=== PATIENT | male | born 1970 | race Caucasian/White ===

== ENCOUNTER → 2018-02-23 | Outpatient (CLI) | payer BC ==
[~2018-02-23] MED LIST: BACL10TA PO; LORA10CA PO; NAPR220T76 PO
[2018-02-23 19:07] LABS: ALANINE AMINOTRANSFERASE 37 U/L (0-55); ALBUMIN 4.3 GM/DL (3.2-4.5); ALKALINE PHOSPHATASE 83 U/L (40-136); BILIRUBIN,TOTAL 0.6 MG/DL (0.1-1.0); BUN/CREATININE RATIO 13; CALCIUM 9.4 MG/DL (8.5-10.1); CARBON DIOXIDE 25 MMOL/L (21-32); CHLORIDE 105 MMOL/L (98-107); CREATININE SERUM 1.06 MG/DL (0.60-1.30); GFR ESTIMATED > 60; GLUCOSE 102 MG/DL (70-105); SODIUM 138 MMOL/L (135-145); TOTAL PROTEIN 7.6 GM/DL (6.4-8.2)
--- NOTE | 2018-02-23 19:12 | Diagnostic Imaging Report ---
PATIENT HISTORY: COUGH. TECHNIQUE: Two views of the chest. COMPARISON: 02/23/2018. FINDINGS: Lung volumes are normal. There is mild airspace opacity at the lingula. No pleural effusion or pneumothorax is seen. The cardiac silhouette is normal in size. No acute osseous abnormality is seen. IMPRESSION: Mild airspace opacity at the lingula may represent atelectasis or infiltrate. Dictated by: Dictated on workstation # [id number]
[2018-02-24 12:19] LABS: BASOPHILS % (AUTO) 1 % (0-10); EOSINOPHILS # (AUTO) 0.1 10^3/uL (0.0-0.3); EOSINOPHILS % (AUTO) 2 % (0-10); HEMATOCRIT 43 % (40-54); HEMOGLOBIN 14.9 G/DL (13.3-17.7); LYMPHOCYTES % (AUTO) 37 % (12-44); MEAN CORPUSCULAR HEMOGLOBIN 28 PG (25-34); MEAN CORPUSCULAR HGB CONC 35 G/DL (32-36); MEAN CORPUSCULAR VOLUME 81 FL (80-99); MEAN PLATELET VOLUME 10.3 FL (7.4-10.4); MONOCYTES # (AUTO) 0.6 X 10^3 (0.0-1.0); MONOCYTES % (AUTO) 11 % (0-12); NEUTROPHILS # (AUTO) 2.6 X 10^3 (1.8-7.8); NEUTROPHILS % (AUTO) 49 % (42-75); PLATELET COUNT 312 10^3/uL (130-400); RED BLOOD COUNT 5.25 10^6/uL (4.35-5.85); RED CELL DISTRIBUTION WIDTH 12.9 % (10.0-14.5); WHITE BLOOD COUNT 5.3 10^3/uL (4.3-11.0)
[2018-02-24 12:47] LABS: ERYTHROCYTE SEDIMENTATION RATE 4 MM/HR (0-15)
== END ==
LOC: RAD 18:20
PROVIDERS: ATTEND Internal Medicine
DX: R91.8 Other nonspecific abnormal finding of lung field (principal); R50.9 Fever, unspecified; R05 Cough; E78.1 Pure hyperglyceridemia
CPT/HCPCS: 36415; 71046; 80053; 85025; 85652

== ENCOUNTER 2019-09-14 05:29 | Outpatient (RCR) | payer BC ==
[~2019-09-14] VITALS: Ht 182 cm; Wt 95.4 kg
[~2019-09-14 05:29] MED LIST changes: +DIPH25CA79 PO; +LORA10TA76 PO
== END 2019-09-14 14:23 | disposition home or self-care (01) ==
LOC: PREOP 05:29
PROVIDERS: ATTEND Internal Medicine
DX: Z01.812 Encounter for preprocedural laboratory examination (principal); Z20.828 Contact with and (suspected) exposure to other viral communicable diseases; Z12.11 Encounter for screening for malignant neoplasm of colon
CPT/HCPCS: 87635

== ENCOUNTER 2019-09-17 09:00 | Day surgery (SDC) | payer BC ==
--- NOTE | 2019-09-06 08:24 | HISTORY AND PHYSICAL ---
DATE OF SERVICE: COLONOSCOPY HISTORY AND PHYSICAL DATE OF ADMISSION: ____. HISTORY OF PRESENT ILLNESS: The patient is a 48-year-old white male, who was referred by Dr. Morrow for his first screening colonoscopy. He is deemed to be of average risk as he is not aware of any family history for colon cancer or colon polyps. He denies abdominal pain or bowel habit change and has noted no melena. On some rare occasions, as I recall, he has had some small volume painless bright red blood per rectum. It has been several months since this last occurred. He reports that he feels well in his usual state of health. See below review of systems. PAST MEDICAL HISTORY: Significant for BPH and seasonal allergies with mild anxiety. He has a history of reflux for which he takes Prilosec and is on prophylactic aspirin 81 mg daily. He has had no dysphagia, epigastric or upper quadrant abdominal pain. PAST SURGICAL HISTORY: He had left inguinal hernia repair in 2004. FAMILY HISTORY: Father is living at the age of 93 with osteoarthritis and BPH. No known vascular disease or malignancy. Mother is living at the age of 79, but does have stage IV breast cancer, which has been responsive to hormonal therapy. 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 REVIEW OF SYSTEMS: CONSTITUTIONAL: The patient reports no change in weight, night sweats, chills or fever. CARDIOVASCULAR: The patient denies chest pain, dyspnea on exertion, orthopnea, PND or pedal edema. PULMONARY: The patient denies cough, wheezing or shortness of breath. GASTROINTESTINAL: As noted in the HPI. PHYSICAL EXAMINATION: GENERAL: Reveals a well-appearing white male in no acute distress. HEENT: Unremarkable. Mallampati 2 pharyngeal configuration. Pharynx, no evidence for erythema. CHEST: Clear to auscultation. CARDIOVASCULAR: Reveals a regular rate and rhythm without murmur, S3 or S4. ABDOMEN: Soft, supple without mass, organomegaly or tenderness. EXTREMITIES: Reveal no cyanosis, clubbing or edema. ASSESSMENT AND PLAN: The patient was set up for screening colonoscopy. Prep instructions with the Suprep kit were given and questions were answered. I thank you for the referral of this pleasant gentleman. I also reviewed his electronic medical record. Job ID: [id number] DocumentID: [id number] Dictated Date: 08/24/2019 08:44:24 Embedded Software Development Engineer Date: 08/24/2019 09:20:04 Dictated By: THOMAS TAY MD MTDD
[~2019-09-17] VITALS: Ht 182 cm; Wt 95.4 kg
[2019-09-17] VITALS (11 sets, daily range): BP systolic 118–144; BP diastolic 70–97
--- OUTSIDE RECORDS SUMMARY | 2019-09-17 08:56 | XMS REPORT | Continuity of Care Document ---
Author Organization Unknown Address Unknown Phone Unavailable Allergies Active Description Code Type Severity Reaction Onset Reported/Identified Relationship to Patient Clinical Status Yes No Known Drug Allergies [id number] Drug Allergy Unknown N/A 09/09/2019 Medications There is no data. Problems Date Dx Coded Attending Type Code Diagnosis Diagnosed By 01/16/1422 JASVIR LLANES, THOMAS Dhaliwal Ot Z01.812 ENCOUNTER FOR PREPROCEDURAL LABORATORY E 01/16/1422 THOMAS TAY MD Ot Z12. 11 ENCOUNTER FOR SCREENING FOR MALIGNANT NE 01/16/1422 THOMAS TAY MD Ot Z20.828 CONTACT W AND EXPOSURE TO OTH VIRAL COMM 07/14/2005 Ot 918.1 07/14/2005 Ot 918.9 07/14/2005 Ot E849.0 07/14/2005 Ot E917.9 06/03/2010 Ot 724.1 PAIN IN THORACIC SPINE 02/24/2018 BARTON DO, MAGGY Ot E78.1 PURE HYPERGLYCERIDEMIA 02/24/2018 BARTON DO, MAGGY Ot R05 COUGH 02/24/2018 BARTON DO, MAGGY Ot R50.9 FEVER, UNSPECIFIED 02/24/2018 BARTON DO, MAGGY Ot R91.8 OTHER NONSPECIFIC ABNORMAL FINDING OF ERA 04/20/2018 BARTON DO, MAGGY Ot E78.1 PURE HYPERGLYCERIDEMIA 04/20/2018 BARTON DO, MAGGY Ot R05 COUGH 04/20/2018 BARTON DO, MAGGY Ot R50.9 FEVER, UNSPECIFIED 04/20/2018 BARTON DO, MAGGY Ot R91.8 OTHER NONSPECIFIC ABNORMAL FINDING OF ERA 04/24/2018 BARTON DO, MAGGY Ot E78.1 PURE HYPERGLYCERIDEMIA 04/24/2018 BARTON DO, MAGGY Ot R05 COUGH 04/24/2018 BARTON DO, MAGGY Ot R50.9 FEVER, UNSPECIFIED 04/24/2018 BARTON DO, MAGGY Ot R91.8 OTHER NONSPECIFIC ABNORMAL FINDING OF ERA 04/24/2018 BARTON DO, MAGGY Ot E78.1 PURE HYPERGLYCERIDEMIA 04/24/2018 MAGGY BARTON DO Ot R05 COUGH 04/24/2018 MAGGY BARTON DO Ot R50.9 FEVER, UNSPECIFIED 04/24/2018 MAGGY BARTON DO Ot R91.8 OTHER NONSPECIFIC ABNORMAL FINDING OF ERA Procedures There is no data. Results Test Result Range Comprehensive metabolic panel - 02/23/18 18:43 Serum or plasma sodium measurement (moles/volume) 138 mmol/L 135-145 Serum or plasma potassium measurement (moles/volume) 4.0 mmol/L 3.6-5.0 Serum or plasma chloride measurement (moles/volume) 105 mmol/L 98-107 Carbon dioxide 25 mmol/L 21-32 Serum or plasma anion gap determination (moles/volume) 8 mmol/L 5-14 Serum or plasma urea nitrogen measurement (mass/volume ) 14 mg/dL 7-18 Serum or plasma creatinine measurement (mass/volume) 1.06 mg/dL 0.60-1.30 Serum or plasma urea nitrogen/creatinine mass ratio 13 NRG Serum or plasma creatinine measurement w ith calculation of estimated glomerular filtration rate > NRG Serum or plasma glucose measurement (mass/volume) 102 mg/dL 70-105 Serum or plasma calcium measurement (mass/volume) 9.4 mg/dL 8.5-10.1 Serum or plasma total bilirubin measurement (mass/volu me) 0.6 mg/dL 0.1-1.0 Serum or plasma alkaline phosphatase canelo surement (enzymatic activity/volume) 83 U/L 40-136 Serum or plasma aspartate aminotransfera se measurement (enzymatic activity/volume) 32 U/L 5-34 Serum or plasma alanine aminotransferase measurement (enzymatic activity/volume) 37 U/L 0-55 Serum or plasma protein measurement (mass/volume) 7.6 g/dL 6.4-8.2 Serum or plasma albumin measurement (mass/volume) 4.3 g/dL 3.2-4.5 CALCIUM CORRECTED 9.2 mg/dL 8.5-10.1 Complete blood count (CBC) with automate d white blood cell (WBC) differential - 02/23/18 18:43 Blood leukocytes automated count (number/volume) 5.3 10*3/uL 4.3-11.0 Blood erythrocytes automated count (number/volume) 5.25 10*6/uL 4.35-5.85 Venous blood hemoglobin measurement (mass/volume) 14.9 g/dL 13.3-17.7 Blood hematocrit (volume fraction) 43 % 40-54 Automated erythrocyte mean corpuscular volume 81 [ foz_us] 80-99 Automated erythrocyte mean corpuscular h emoglobin (mass per erythrocyte) 28 pg 25-34 Automated erythrocyte mean corpuscular h emoglobin concentration measurement (mass/volume) 35 g/dL 32-36 Automated erythrocyte distribution width ratio 12. 9 % 10.0- 14.5 Automated blood platelet count (count/volume) 312 10*3/uL 130-400 Automated blood platelet mean volume measurement 10.3 [foz_us] 7.4-10.4 Automated blood neutrophils/100 leukocytes 49 % 42-75 Automated blood lymphocytes/100 leukocytes 37 % 12-44 Blood monocytes/100 leukocytes 11 % 0-12 Automated blood eosinophils/100 leukocytes 2 % 0-10 Automated blood basophils/100 leukocytes 1 % 0-10 Blood neutrophils automated count (number/volume) 2.6 10*3 1.8-7.8 Blood lymphocytes automated count (number/volume) 2.0 10*3 1.0-4.0 Blood monocytes automated count (number/volume) 0. 6 10*3 0.0-1.0 Automated eosinophil count 0.1 10*3/uL 0 .0-0.3 Automated blood basophil count (count/volume) 0.0 10*3/uL 0.0-0.1 Erythrocyte sedimentation rate by blanca gren method - 02/23/18 18:43 Erythrocyte sedimentation rate by westergren method 4 mm 0- 15 Coronavirus SARS-CoV-2 SO 2018 - 0 08:08 Coronavirus Ab [Units/volume] in Serum NOT DETECTE D Not Detecte Encounters ACCT No. Visit Date/Time Discharge Status Pt. Type Provider Facility Loc./Unit Complaint [id number] 09/14/2019 05:29:00 020 14:23:00 DIS Outpatient THOMAS TAY MD [facility] PREOP SCREENING [id number] 02/23/2018 18:20:00 019 23:59:59 CLS Outpatient MAGGY BARTON DO [facility] RAD CHEST X RAY PA AND LATE RAL [id number] 09/09/2019 12:32:00 Document Registration [id number] 06/03/2010 11:47:00 Document Registration [id number] 07/14/2005 19:25:00 Document Registration
--- OUTSIDE RECORDS SUMMARY | 2019-09-17 08:56 | XMS REPORT | Clinical Summary ---
Author Author UserJose Organization [facility] Physician Allian e Address Unknown Phone Unavailable Allergies, Adverse Reactions, Alerts Allergy Name Reaction Description Start Date Severity Status Pr leydi ROCA Does nothing for him Critical Active Nata Morrow Conditions or Problems Problem Name Problem Code Onset Date Status Entry Date Provider Comment Standard Description Annotate EXUDATIVE PHARYNGITIS 462 Resolved Madhuri Morrow Acute pharyngitis SINUSITIS, ACUTE 461.9 Resolved Madhuri Rodriguez rner Acute sinusitis, unspecified History of HERNIA REPAIR, HX OF 45.89 Correction 2012 Madhuri Morrow COUGH 786.2 Resolved Madhuri Morrow Cough INGROWN TOENAIL 703.0 Resolved Madhuri orosco Ingrowing nail KELOID SCAR 701.4 Resolved Madhuri Morrow Keloid scar back x 2 ALLERGIC RHINITIS, CHRONIC 477.9 Active 0 Madhuri Morrow Allergic rhinitis, cause unspecified INSOMNIA, CHRONIC 780.52 Active Madhuri Rodriguez rner Insomnia, unspecified SINUS CONGESTION 478.1 Resolved Madhuri Rodriguez rner Other diseases of nasal cavity and sinuses URI 465.9 Resolved Madhuri Mrorow Acute upper respiratory infections of unspecified site PHARYNGITIS, ACUTE 462 Resolved Madhuri Morrow Acute pharyngitis OM, ACUTE SEROUS 381.01 Resolved Madhuri Rodriguez rner Acute serous otitis media ALLERGIC RHINITIS, CHRONIC 477.9 Resolved Madhuri Morrow Allergic rhinitis, cause unspecified ABSCESS, PERITONSILLAR, RIGHT 475 Resolved 07/23 Madhuri Morrow Peritonsillar abscess SINUSITIS, SPHENOIDAL, ACUTE 461.3 Resolved Madhuri Morrow Acute sphenoidal sinusitis SINUSITIS, SPHENOIDAL, ACUTE 461.3 Resolved Madhuri Morrow Acute sphenoidal sinusitis BURSITIS 727.3 Resolved Madhuri Morrow Other bursitis disorders SINUSITIS, SPHENOIDAL, ACUTE 461.3 Resolved Madhuri Morrow Acute sphenoidal sinusitis URINARY FREQUENCY 788.41 Resolved Madhuri foster Urinary frequency HEALTH SCREENING V70.0 Resolved Madhuri Rodriguez rner Routine general medical examination at a health care facility MUSCLE STRAIN 848.9 Resolved Madhuri Ortega r Unspecified site of sprain and strain VARICOSE VEINS, LOWER EXTREMITIES 454.9 Resolved 20 30/07/05 Madhuri Morrow Asymptomatic varicose veins EAR PAIN, BILATERAL 388.70 Resolved Madhuri Morrow Otalgia, unspecified HEALTH SCREENING V70.0 Resolved Madhuri Rodriguez rner Routine general medical examination at a health care facility SHOULDER PAIN 719.41 Active Madhuri Morrow Pain in joint involving shoulder region ERECTILE DYSFUNCTION, 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 08/22 Madhuri Morrow Impotence of organic origin Medication List Medication Instructions Start Date Stop Date Generic Name NDC Status Provider Patient Instruction ROBITUSSIN A-C 10-100 MG/5ML SYRUP 1 teaspoon PO Q 4-6 hr prn 20 31/08/05 ROBITUSSIN A-C 10-100 MG/5ML SYRUP Active Madhurijeri Morrow CIALIS 5 MG TABS 1 po daily as directed TADALAFIL 86484387517 Active Madhurijeri Morrow CEFDINIR 300 MG CAPS 1 PO BID CEFDINIR 59745721794 Active Madhuri Dianelys Morrow VIAGRA 100 MG TABS 1 PO as directed SILDENAFIL CITRATE 67591882661 No Longer Active Madhuri Dianelys Morrow LORTAB 5 5-500 MG TABS 1 to 2 PO Q6hrs prn ACETAMINOPHEN-HYDROCODONE 46685130659 No Longer Active Madhurijeri Morrow LUNESTA 2 MG TABS 1 PO QHS prn ESZOPICLONE 56110 729537 No Longer Active Madhurijeri Morrow BENADRYL 25 MG CAP 1 PO QHS DIPHENHYDRAMINE HCL 20131 747556 Active Madhurijeri Morrow AUGMENTIN 500-125 MG TAB 1 PO BID SERGE XICILLIN-POT CLAVULANATE 03842003223 No Longer Active Madhuri JULIO'S NASAL SPRAY (DEXAMETHASONE, GENTAMICIN, SA LINE) 2 puffs each nostril TID for [address] MA NASAL SP RAY (DEXAMETHASONE, GENTAMICIN, SALINE) No Longer Active Madhuri Morrow PREDNISONE 20 MG TAB 2 pills at once for 2 days then 1 pill daily for 2 days PREDNISONE 39290336985 No Longer Active Cayla Castillo PREDNISONE 20 MG TAB 2 pills at once for 2 days then 1 pill daily for 2 days PREDNISONE 79023247525 No Longer Active Madhuri Morrow CIALIS 20 MG TABS 1 PO as directed TADALAFIL 2349 1666449 No Longer Active Madhurijeri Morrow BACLOFEN 20 MG TABS 1 PO TID PRN BACLOFEN 74172867985 Active Madhurijeri Morrow LEVAQUIN 500 MG TAB 1 PO QD LEVOFLOXACIN 98924 885849 No Longer Active Madhuri MA NASAL SPRAY (DEXAMETHASONE, GENTAMICIN, SA LINE) 2 puffs each nostril TID for [address] MA NASAL SP RAY (DEXAMETHASONE, GENTAMICIN, SALINE) No Longer Active Madhuri Morrow AUGMENTIN 875-125 MG TAB 1 PO BID SERGE XICILLIN-POT CLAVULANATE 67285259489 No Longer Active Madhuri Morrow PREDNISONE 20 MG TAB 2 pills at once for 3 days then 1 pill daily for 2 days PREDNISONE 80533231601 No Longer Active Madhuri Morrow AUGMENTIN 875-125 MG TAB 1 PO BID SERGE XICILLIN-POT CLAVULANATE 71117073265 No Longer Active Madhuri Morrow ATROVENT 0.06 % SOLN 1 puff each nostril QD prn IPRATROPIUM BROMIDE 21293934920 No Longer Active Madhuri Morrow PREDNISONE 20 MG TAB 2 PO daily for 3 days then 1 PO daily f or 2 days PREDNISONE 24224730920 No Longer Active Madhuri MA NASAL SPRAY (DEXAMETHASONE, GENTAMICIN, SA LINE) 2 puffs each nostril TID for [address] MA NASAL SP RAY (DEXAMETHASONE, GENTAMICIN, SALINE) No Longer Active Madhuri Morrow AUGMENTIN 500-125 MG TAB 1 PO BID SERGE XICILLIN-POT CLAVULANATE 87108648796 No Longer Active Madhuri Morrow PERIDEX 0.12 % SOLN gargle BID as needed for sore throat CHLORHEXIDINE GLUCONATE 10885451443 No Longer Active Madhuri Dianelys Morrow CLARITIN 10 MG TABS 1 daily LORATADINE 38415918 801 No Longer Active Madhuri Dianelys Morrow CLARITIN-D 24 HOUR 10-240 MG TB24 1 PO daily LO RATADINE-PSEUDOEPHEDRINE 40336445882 Active Madhuri Dianelys Morrow MUCINEX 600 MG TB12 1 PO BID for 7 days GUAIFEN ESIN 10524058312 No Longer Active Madhuri Dianelys JULIO'S NASAL SPRAY (DEXAMETHASONE, GENTAMICIN, SA LINE) 2 puffs each nostril TID for [address] MARCUSS NASAL SP RAY (DEXAMETHASONE, GENTAMICIN, SALINE) No Longer Active Madhuri Morrow AUGMENTIN 875-125 MG TAB 1 PO BID SERGE XICILLIN-POT CLAVULANATE 47838566246 No Longer Active Madhuri Dianelys Morrow PERIDEX 0.12 % SOLN gargle BID CHLORHEXIDINE GL UCONATE 78931773232 No Longer Active Madhuri Dianelys Morrow ASPIRIN 81 MG TAB 1 daily ASPIRIN 09443390117 Active Mi ndi Dianelys Morrow CODICLEAR DH 5-100 MG/5ML SYRP 5 cc. q 4-6 hrs. prn cough 3 HYDROCODONE-GUAIFENESIN 35590710337 No Longer Active Madhuri Dianelys Morrow NYQUIL 60-7.5-30-1000 MG/30ML LIQD as night 07/30 [id number] 48907993920 No Longer Active Madhurijeri Driver er VICKS FORMULA 44D 20-10 MG/5ML ELIX as directed 07/30 PSEUDOEPHEDRINE-DM 37074539928 No Longer Active Madhuri Dianelys Morrow AMOXIL 500 MG CAPS 2 po tid AMOXICILLIN 4359931 6707 No Longer Active Madhuri Dianelys Morrow SALT AND SODA NASAL SPRAY Flush 2-3 times daily for 1 week 03/26 SALT AND SODA NASAL SPRAY No Longer Active Madhuri Minoo Morrow CODICLEAR DH 5-100 MG/5ML SYRP 5 cc po q 4-6 hrs. prn cough 2004 HYDROCODONE-GUAIFENESIN 65287895933 No Longer Active Madhuri Diomedes Morrow AMBIEN 10 MG TAB 1/2 PO QHS ZOLPIDEM TARTRATE 52644189490 No Longer Active Madhuri Dianelys Morrow ZITHROMAX Z-MADELAINE 250 MG TABS 2 the first day, then 1 x 4 days 200 05/29/28 AZITHROMYCIN 32779948603 No Longer Active Madhuri Dianelys Morrow CLARINEX 5 MG TABS 1 PO QD DESLORATADINE 27755 248311 No Longer Active Madhuri Dianelys Morrow PALGIC 4 MG TABS 1 PO QD CARBINOXAMINE TARAN TE 48151067248 No Longer Active Madhuri Dianelys Morrow CLARITIN-D 24 HOUR 10-240 MG TB24 1 PO QD LORATADINE-PSEUDOEPHEDRINE 97844711951 No Longer Active Madhuri Dianelys Morrow ASTELIN 137 MCG/SPRAY SOLN 2 puffs each nostril BID 05/28/19 AZELASTINE HCL 52218991019 No Longer Active Madhuri Dianelys Morrow KEFLEX 500 MG TABS 1 tab tid x 7 days CEPHALEXI N 06459559183 No Longer Active Madhuri Dianelys MCDONALDICLEAR DH 5-100 MG/5ML SYRP 5 cc Po Q4-6prn HYDROCODONE-GUAIFENESIN 85113656430 No Longer Active Madhuri Dianelys Morrow BIAXIN 500 MG TAB 1 QD CLARITHROMYCIN 90136 689708 No Longer Active Madhuri Dianelys Morrow ATROVENT 0.06 % SOLN IPRATROPIUM BROMI DE 71372938389 No Longer Active Madhuri Morrow CLARINEX 5 MG TABS 1 QD DESLORATADINE 38115 079700 No Longer Active Madhurijeri Guzmane Cristhian Vital Signs Date Name Value Unit Range Description blood pressure, diastolic - 8462-4 80 mm[Hg] BP robison blood pressure, systolic - 8480-6 139 mm[Hg] BP sys pulse rate E&M - 8867-4 88 /min H eart rate respiratory rate E&M - 9279-1 14 /min Resp rate temperature E&M 98.6 [degF] Body temp erature weight E&M - 3141-9 111 [lb_av] Weigh t Measured blood pressure, diastolic - 8462-4 34 mm[Hg] BP robison blood pressure, systolic - 8480-6 128 mm[Hg] BP sys pulse rate E&M - 8867-4 80 /min H eart rate respiratory rate E&M - 9279-1 14 /min Resp rate weight E&M - 3141-9 205 [lb_av] Weigh t Measured Diagnostic Results Date Name Value Unit Range Description Clinical Lists Update: CBC,CMP,FLP,TSH - Chemistry Estimated Glomerular Filtration Rate (calc) 73 mL/ min/1.73m2 glucose, plasma fasting 99 mg/dL albumin, serum 4.4 g/dL alkaline phosphatase, serum 61 U/L urea nitrogen, blood 18 mg/dL calcium, serum 9.4 mg/dL chloride, serum 104 mmol/L cholesterol, serum 198 mg/dL cholesterol/HDL ratio, serum, percent 5.4 anion gap, serum 12 sodium, serum 140 mmol/L triglyceride, serum, fasting 177 mg/dL bilirubin, serum, total 0.5 mg/dL alanine aminotransferase (SGPT), serum 52 U/L aspartate aminotransferase (SGOT), serum 33 U/L protein, total, serum 6.7 g/dL potassium, serum 4.5 mmol/L LDL cholesterol, serum 126 mg/dL thyroid stimulating hormone, serum 1.01 u[iU]/mL HDL cholesterol, serum 37.0 mg/dL creatinine, serum 1.2 mg/dL carbon dioxide, venous blood 29.0 mmol/L Clinical Lists Update: CBC,CMP,FLP,TSH - Hematology erythrocyte (RBC) count 5.24 10*6/mm3 leukocyte count, blood 5.4 10*3/mm3 mean corpuscular volume, RBC 86 fL red blood cell distribution width 13.4 % hemoglobin, blood 15.3 g/dL platelet count 267 10*3/mm3 hematocrit, blood 45 % Encounters Code Encounter Date Provider Facility CPT-11658 Ofc Vst, Est Level IV 17:15:17 CDT Madhuri Serena Morrow DO, FACP CPT-31629 Ofc Vst, Est Level III 15:12:15 CDT Madhuri Morrow DO, FACP CPT-37951 Ofc Vst, Est Level III 11:44:55 CDT Madhuri Morrow DO FACP CPT-31135 Ofc Vst, Est Level III 15:55:25 CDT Madhuri Morrow [facility] CPT-20683 Ofc Vst, Est Level III 15:02:42 CDT Madhuri Morrow DO, FACP CPT-23383 Ofc Vst, Est Level III 14:37:44 LAUNDRY HOUSEKEEPER Madhuri S tiny Morrow Madhuri S Morrow, DO, FACP CPT-25781 Ofc Vst, Est Level III 10:42:22 CDT Madhuri S tiny [place] Madhuri S Morrow, DO, FACP CPT-45017 Ofc Vst, Est Level III 13:56:18 LAUNDRY HOUSEKEEPER Madhuri S tiny Morrow Madhuri S Morrow, DO, FACP CPT-01142 Ofc Vst, Est Level III 14:13:26 CDT Madhuri S tiny Brownner Madhuri S Morrow, DO, FACP CPT-92481 Ofc Vst, Est Level III 13:09:03 CDT Madhuri S tiny Morrow Madhuri S Cristhian, DO, FACP CPT-24333 Ofc Vst, Est Level III 09:11:49 LAUNDRY HOUSEKEEPER Madhuri S tiny Morrow Madhuri S Cristhian, DO, FACP CPT-80920 Ofc Vst, Est Level II 13:56:22 CDT Madhuri Lyons ce Morrow [facility] [place] CPT-39911 Ofc Vst, Est Level III 09:45:40 CDT Amdhuri S tiny Morrow [facility] [place] CPT-12861 Ofc Vst, Est Level II 17:33:06 LAUNDRY HOUSEKEEPER Madhuri Serena Morrow [facility] [place] CPT-97163 Ofc Vst, Est Level II 17:36:49 LAUNDRY HOUSEKEEPER Madhuri Serena Morrow [facility] [place] CPT-42788 Ofc Vst, Est Level II 14:04:35 LAUNDRY HOUSEKEEPER Madhuri Serena Morrow [facility] [place] CPT-77215 Ofc Vst, Est Level III 13:11:52 CDT Madhuri S tiny Morrow [facility] [place] CPT-54223 Ofc Vst, Est Level II 12:44:50 CDT Madhuri Serena Morrow [facility] [place] CPT-34574 Ofc Vst, Est Level III 10:35:29 CDT Madhuri Morrow [facility] [place] CPT-88388 Ofc Vst, Est Level II 11:11:24 LAUNDRY HOUSEKEEPER Madhuri Morrow [facility] [place] CPT-97987 Ofc Vst, New Level II 17:43:21 LAUNDRY HOUSEKEEPER Madhuri Morrow [facility] [place] Procedures Code Procedure Name Date Entry Date Standard Desc ription CPT-40410 Preventive, Est, (40-64) 17:11:09 CDT 09/30 CPT-90100 Preventive, Est, (18-39) 12:00:53 CDT 08/29 CPT-72845 Injection, intralesional, up to 7 lesions 07/30 09:36:32 CDT CPT-94666 Injection, intralesional, up to 7 lesions 07/31 12:44:50 CDT
--- OUTSIDE RECORDS SUMMARY | 2019-09-17 08:56 | XMS REPORT | Clinical Summary ---
Author Author User, Jose Gilbert Organization [facility] Allian e Address Unknown Phone Unavailable [...] cavity and sinuses URI 465.9 Resolved Madhuri Morrow Acute upper respiratory infections of unspecified site [...] 08/22 Madhuri Morrow Impotence of organic origin CELLULITIS 682.9 Active Madhuri Morrow Cellulitis and abscess of unspecified sites Medication List Medication Instructions Start Date Stop Date Generic Name ND Status Provider Patient Instruction ROBITUSSIN A-C 10-100 MG/5ML SYRUP 1 teaspoon PO Q 4-6 hr prn 20 31/08/05 ROBITUSSIN A-C 10-100 MG/5ML SYRUP No Longer Act diomedes Madhuri Morrow CIALIS 5 MG TABS 1 po daily as directed TADALAFIL 13275364579 Active Madhurijeri Morrow CEFDINIR 300 MG CAPS 1 PO BID CEFDINIR 6671617 0900 No Longer Active Madhuri Morrow VIAGRA 100 MG TABS 1 PO as directed SILDENAFIL CITRATE 12650889364 No Longer Active Madhuri Morrow LORTAB 5 5-500 MG TABS 1 to 2 PO Q6hrs prn ACETAMINOPHEN-HYDROCODONE 94616429631 No Longer Active Madhuri Morrow LUNESTA 2 MG TABS 1 PO QHS prn ESZOPICLONE 92512 182565 No Longer Active Madhuri Morrow BENADRYL 25 MG CAP 1 PO QHS DIPHENHYDRAMINE HCL 81560 602522 Active Madhuri Morrow AUGMENTIN 500-125 MG TAB 1 PO BID SERGE XICILLIN-POT CLAVULANATE 14659469831 No Longer Active Madhuri JULIO'S NASAL SPRAY (DEXAMETHASONE, GENTAMICIN, SA LINE) 2 puffs each nostril TID for [address] MA NASAL SP RAY (DEXAMETHASONE, GENTAMICIN, SALINE) No Longer Active Madhuri Morrow PREDNISONE 20 MG TAB 2 pills at once for 2 days then 1 pill daily for 2 days PREDNISONE 82321675824 No Longer Active aCyla Castillo PREDNISONE 20 MG TAB 2 pills at once for 2 days then 1 pill daily for 2 days PREDNISONE 69456096593 No Longer Active Madhuri Minoo Morrow CIALIS 20 MG TABS 1 PO as directed TADALAFIL 2349 4150911 No Longer Active Madhuri Dianelys Morrow BACLOFEN 20 MG TABS 1 PO TID PRN BACLOFEN 21876680964 Active Madhuri Dianelys Morrow LEVAQUIN 500 MG TAB 1 PO QD LEVOFLOXACIN 29506 905776 No Longer Active Madhuri Dianelys MA NASAL SPRAY (DEXAMETHASONE, GENTAMICIN, SA LINE) 2 puffs each nostril TID for [address] MA NASAL SP RAY (DEXAMETHASONE, GENTAMICIN, SALINE) No Longer Active Madhurijeri Morrow AUGMENTIN 875-125 MG TAB 1 PO BID SERGE XICILLIN-POT CLAVULANATE 23214524025 No Longer Active Madhurijeri Morrow PREDNISONE 20 MG TAB 2 pills at once for 3 days then 1 pill daily for 2 days PREDNISONE 61577684702 No Longer Active Madhuri Minoo Morrow AUGMENTIN 875-125 MG TAB 1 PO BID SERGE XICILLIN-POT CLAVULANATE 88211690546 No Longer Active Madhuri Morrow ATROVENT 0.06 % SOLN 1 puff each nostril QD prn IPRATROPIUM BROMIDE 77566372954 No Longer Active Madhurijeri Morrow PREDNISONE 20 MG TAB 2 PO daily for 3 days then 1 PO daily f or 2 days PREDNISONE 86266634269 No Longer Active Madhuri Dianelys Driver er DR. MA NASAL SPRAY (DEXAMETHASONE, GENTAMICIN, SA LINE) 2 puffs each nostril TID for [address] MA NASAL SP RAY (DEXAMETHASONE, GENTAMICIN, SALINE) No Longer Active Madhuri Dianelys Morrow AUGMENTIN 500-125 MG TAB 1 PO BID SERGE XICILLIN-POT CLAVULANATE 43613675021 No Longer Active Madhurijeri Morrow PERIDEX 0.12 % SOLN gargle BID as needed for sore throat CHLORHEXIDINE GLUCONATE 94844296517 No Longer Active Madhuri Dianelys Morrow CLARITIN 10 MG TABS 1 daily LORATADINE 67092087 801 No Longer Active Madhuri Dianelys Morrow CLARITIN-D 24 HOUR 10-240 MG TB24 1 PO daily LO RATADINE-PSEUDOEPHEDRINE 86331238779 Active Madhuri Dianelys Morrow MUCINEX 600 MG TB12 1 PO BID for 7 days GUAIFEN ESIN 53380348834 No Longer Active Madhurijeri JULIO'S NASAL SPRAY (DEXAMETHASONE, GENTAMICIN, SA LINE) 2 puffs each nostril TID for [address] JULIO'Diomedes NASAL SP RAY (DEXAMETHASONE, GENTAMICIN, SALINE) No Longer Active Madhurijeri Morrow AUGMENTIN 875-125 MG TAB 1 PO BID SERGE XICILLIN-POT CLAVULANATE 10647440925 No Longer Active Madhuri Dianelys Morrow PERIDEX 0.12 % SOLN gargle BID CHLORHEXIDINE GL UCONATE 11723770670 No Longer Active Madhurijeri Morrow ASPIRIN 81 MG TAB 1 daily ASPIRIN 76970483316 Active Mi ndi Dianelys Morrow CODICLEAR DH 5-100 MG/5ML SYRP 5 cc. q 4-6 hrs. prn cough 3 HYDROCODONE-GUAIFENESIN 43751230421 No Longer Active Madhuri Dianelys Morrow NYQUIL 60-7.5-30-1000 MG/30ML LIQD as night 07/30 HQSLQIPMI-[id number]-APAP 91544280412 No Longer Active Madhurijeri Driver er VICKS FORMULA 44D 20-10 MG/5ML ELIX as directed 07/30 PSEUDOEPHEDRINE-DM 07902157409 No Longer Active Madhuri Dianelys Morrow AMOXIL 500 MG CAPS 2 po tid AMOXICILLIN 4178929 6707 No Longer Active Madhuri Dianelys Morrow SALT AND SODA NASAL SPRAY Flush 2-3 times daily for 1 week 03/26 SALT AND SODA NASAL SPRAY No Longer Active Madhuri Minoo Morrow CODICLEAR DH 5-100 MG/5ML SYRP 5 cc po q 4-6 hrs. prn cough 2004 HYDROCODONE-GUAIFENESIN 38778981251 No Longer Active Madhuri Diomedes Morrow AMBIEN 10 MG TAB 1/2 PO QHS ZOLPIDEM TARTRATE 00650237346 No Longer Active Madhuri Dianelys Morrow ZITHROMAX Z-MADELAINE 250 MG TABS 2 the first day, then 1 x 4 days 200 05/29/28 AZITHROMYCIN 08461323921 No Longer Active Madhuri Dianelys Morrow CLARINEX 5 MG TABS 1 PO QD DESLORATADINE 19552 277757 No Longer Active Madhuri Dianelys Morrow PALGIC 4 MG TABS 1 PO QD CARBINOXAMINE TARAN TE 10319134628 No Longer Active Madhurijeri Morrow CLARITIN-D 24 HOUR 10-240 MG TB24 1 PO QD LORATADINE-PSEUDOEPHEDRINE 77095874471 No Longer Active Madhuri Dianelys Morrow ASTELIN 137 MCG/SPRAY SOLN 2 puffs each nostril BID 05/28/19 AZELASTINE HCL 27731378225 No Longer Active Madhuri Dianelys Morrow KEFLEX 500 MG TABS 1 tab tid x 7 days CEPHALEXI N 26307747522 No Longer Active Madhurijeri MCDONALDICLEAR DH 5-100 MG/5ML SYRP 5 cc Po Q4-6prn HYDROCODONE-GUAIFENESIN 74192758431 No Longer Active Madhuri Dianelys Morrow BIAXIN 500 MG TAB 1 QD CLARITHROMYCIN 88932 872439 No Longer Active Madhuri Dianelys Morrow ATROVENT 0.06 % SOLN IPRATROPIUM BROMI DE 55349806409 No Longer Active Madhuri Dianelys Morrow CLARINEX 5 MG TABS 1 QD DESLORATADINE 99187 432216 No Longer Active Madhuri Dianelys Morrow Vital Signs Date Name Value Unit Range Description blood pressure, diastolic - 8462-4 80 mm[Hg] BP robison blood pressure, systolic - 8480-6 140 mm[Hg] BP sys pulse rate E&M - 8867-4 80 /min H eart rate respiratory rate E&M - 9279-1 14 /min Resp rate weight E&M - 3141-9 207 [lb_av] Weigh t Measured blood pressure, diastolic - 8462-4 80 mm[Hg] [...] - 3141-9 205 [lb_av] Weigh t Measured Encounters Code Encounter Date Provider Facility CPT-19315 Ofc Vst, Est Level III 14:05:57 CDT Madhuri Dhaliwal S Morrow, DO, FACP CPT-66955 Ofc Vst, Est Level IV 17:15:17 CDT Madhuri Serena Peacei S Morrow, DO, FACP CPT-01559 Ofc Vst, Est Level III 15:12:15 CDT Madhuri S tiny Peacei Diomedes Morrow, DO, FACP CPT-83912 Ofc Vst, Est Level III 11:44:55 CDT Madhuri S tiny Peacei Diomedes Morrow, DO, FACP CPT-97774 Ofc Vst, Est Level III 15:55:25 CDT Madhuri S tiny Morrow [facility] CPT-17148 Ofc Vst, Est Level III 15:02:42 CDT Madhuri S tiny Peacei Diomedes Cristhian, DO, FACP CPT-97619 Ofc Vst, Est Level III 14:37:44 OUTSOLE SKIVER Madhrui S tiny Peacei S Cristhian, DO, FACP CPT-96574 Ofc Vst, Est Level III 10:42:22 CDT Madhuri S tiny Peacei S Morrow, DO, FACP CPT-53655 Ofc Vst, Est Level III 13:56:18 OUTSOLE SKIVER Madhuri Diomedes Peacei Diomedes Cristhian, DO, FACP CPT-02126 Ofc Vst, Est Level III 14:13:26 CDT Madhuri S tiny Peacei S Cristhian, DO, FACP CPT-50357 Ofc Vst, Est Level III 13:09:03 CDT Madhuri S tiny [place] Madhuri S Morrow, DO, FACP CPT-72296 Ofc Vst, Est Level III 09:11:49 OUTSOLE SKIVER Madhuri S tiny Morrow Madhuri S Morrow, DO, FACP CPT-10316 Ofc Vst, Est Level II 13:56:22 CDT Madhuri Serena encinas Cristhian [facility] [place] CPT-92442 Ofc Vst, Est Level III 09:45:40 CDT Madhuri Diomedes tiny Morrow [facility] [place] CPT-22348 Ofc Vst, Est Level II 17:33:06 OUTSOLE SKIVER Madhuri Lyons ce Morrow [facility] [place] CPT-91310 Ofc Vst, Est Level II 17:36:49 OUTSOLE SKIVER Madhuri Serena triplettlouann Cristhian [facility] [place] CPT-73875 Ofc Vst, Est Level II 14:04:35 OUTSOLE SKIVER Madhuri Serena Morrow [facility] [place] CPT-17705 Ofc Vst, Est Level III 13:11:52 CDT Madhuri Diomedes mikekvngdreadlouann Cristhian [facility] [place] CPT-65503 Ofc Vst, Est Level II 12:44:50 CDT Madhuri Lyons ce Morrow [facility] [place] CPT-23862 Ofc Vst, Est Level III 10:35:29 CDT Madhuri Diomedes mikekvngdreadlouann Cristhian [facility] [place] CPT-70473 Ofc Vst, Est Level II 11:11:24 OUTSOLE SKIVER Madhuri Lyons uziellouann Cristhian [facility] [place] CPT-14161 Ofc Vst, New Level II 17:43:21 OUTSOLE SKIVER Madhuri Lyons uziellouann Cristhian [facility] [place] Procedures Code Procedure Name Date Entry Date Standard Desc ription CPT-76853 Preventive, Est, (40-64) 17:11:09 CDT 09/30 CPT-69500 Preventive, Est, (18-39) 12:00:53 CDT 08/29 CPT-50647 Injection, intralesional, up to 7 lesions 07/30 09:36:32 CDT CPT-49906 Injection, intralesional, up to 7 lesions 07/31 12:44:50 CDT
[~2019-09-17 09:00] MED LIST changes: +D5 LR IV SOLUTION 1,000 ML IV ONE; +D5 LR IV SOLUTION 1,000 ML IV STA; +LIDOCAINE JELLY 2% 6 ML SYRINGE MM PRN; +LIDOCAINE JELLY 2% 6 ML SYRINGE ONE; +MIDAZOLAM 5 MG/5 ML (VERSED) VIAL IV PRN; +MIDAZOLAM 5 MG/5 ML (VERSED) VIAL ONE; +fentaNYL INJECTION 100 MCG/2 ML AMP IVP ONE; +fentaNYL INJECTION 100 MCG/2 ML AMP ONE
--- NOTE | 2019-09-17 09:29 | Pre-Op Note & Conscious Sedat ---
Pre-Operative Progress Note H&P Reviewed The H&P was reviewed, patient examined and no changes noted. Date H&P Reviewed: Sep 17, 2019 Time H&P Reviewed: 08:50 Conscious Sedation Pre-Proced ASA Score 2 For ASA 3 and 4: Consider anesthesia and medical clearance. Also, for patients with a history of failed moderate sedation consider anesthesia. Airway Lungs Heart ASA score ASA 1: a normal healthy patient ASA 2: a patient with a mild systemic disease (mid diabetes, controlled hypertension, obesity ASA 3: a patient with a severe systemic disease that limits activity (angina, COPD, prior Myocardial infarction) ASA 4: a patient with an incapacitating disease that is a constant threat to life (CHF, renal failure) ASA 5: a moribund patient not expected to survive 24 hrs. (ruptured aneurysm) ASA 6: a declared brain- patient whose organs are being harvested. For emergent operations, add the letter E after the classification Mallampati Classification Grade 2 Sedation Plan Analgesia, Amnesia, Plan communicated to team members, Discussed options with patient/fam, Discussed risks with patient/fam The patient is an appropriate candidate to undergo the planned procedure, sedation, and anesthesia. The patient immediately re-assessed prior to indication. THOMAS TAY MD Sep 17, 2019 09:29
--- NOTE | 2019-09-17 17:08 | OPERATIVE REPORT ---
DATE OF SERVICE: COLONOSCOPY SUMMARY INDICATION FOR THE PROCEDURE: Screening colonoscopy. DESCRIPTION OF PROCEDURE: The patient was placed in the left lateral decubitus position. Prior to undergoing colonoscopy, digital rectal evaluation was performed. Anal sphincter tone was normal and the perianal reflexes intact. No abnormalities were noted on digital inspection of anal canal or distal rectal vault. The colonoscope was then inserted into the rectum and under direct visualization advanced to cecum. Cecum was identified by identification of the ileocecal valve and cecal strap. Photographic documentation was obtained. Quality of prep was good. The patient tolerated the procedure well. FINDINGS: No evidence for internal or external hemorrhoids and the rectum was unremarkable. Present in the proximal sigmoid colon was a diminutive hyperplastic-appearing polyp. It was biopsied and ablated. No other sigmoid colonic abnormalities were appreciated. The descending colon, splenic flexure, transverse colon, hepatic flexure, ascending colon and cecum were unremarkable. ASSESSMENT: One diminutive hyperplastic polyp was removed from the proximal sigmoid colon via hot forceps. This is otherwise normal colonoscopy to the cecum. Normal digital rectal evaluation of the prostate. The patient is not aware of any family history for colon cancer, so would advocate consideration for repeat screening colonoscopy in 10 years. Thank you for the referral of this pleasant gentleman. Job ID: [id number] DocumentID: [id number] Dictated Date: 09/17/2019 12:00:17 Lead Radiologic Technologist Date: 09/17/2019 17:07:42 Dictated By: THOMAS TAY MD
--- OUTSIDE RECORDS SUMMARY | 2019-09-17 17:22 | XMS REPORT | Continuity of Care Document ---
Author Organization Unknown Address Unknown Phone Unavailable Allergies Active Description Code Type Severity Reaction Onset Reported/Identified Relationship to Patient Clinical Status Yes No Known Drug Allergies [id number] Drug Allergy Unknown N/A 09/09/2019 Medications There [...] MAGGY BARTON DO Ot R05 COUGH 04/24/2018 AMGGY BARTON DO Ot R50.9 FEVER, UNSPECIFIED 04/24/2018 [...] Status Pt. Type Provider Facility Loc./Unit Complaint [id number] 09/17/2019 09:00:00 020 10:25:00 DIS Outpatient THOMAS TAY MD [facility] ENDO SCREENING [id number] 09/14/2019 05:29:00 020 14:23:00 DIS Outpatient THOMAS TAY MD [facility] PREOP SCREENING [id number] 02/23/2018 18:20:00 019 23:59:59 CLS Outpatient MAGGY BARTON DO [facility] RAD CHEST X RAY PA AND LATE RAL [id number] 06/03/2010 11:47:00 Document Registration [id number] 07/14/2005 19:25:00 Document Registration
== END 2019-09-17 10:25 | disposition home or self-care (01) ==
LOC: ENDO 09:00
PROVIDERS: ATTEND Internal Medicine
DX: Z12.11 Encounter for screening for malignant neoplasm of colon (principal); K63.5 Polyp of colon; N40.0 Benign prostatic hyperplasia without lower urinary tract symptoms; J30.2 Other seasonal allergic rhinitis; F41.9 Anxiety disorder, unspecified; K21.9 Gastro-esophageal reflux disease without esophagitis; Z79.82 Long term (current) use of aspirin

== ENCOUNTER → 2022-08-13 | Outpatient (CLI) | payer BC, SELFPAY ==
[~2022-08-13] MED LIST changes: -D5 LR IV SOLUTION 1,000 ML IV ONE; -D5 LR IV SOLUTION 1,000 ML IV STA; -LIDOCAINE JELLY 2% 6 ML SYRINGE MM PRN; -LIDOCAINE JELLY 2% 6 ML SYRINGE ONE; -MIDAZOLAM 5 MG/5 ML (VERSED) VIAL IV PRN; -MIDAZOLAM 5 MG/5 ML (VERSED) VIAL ONE; -fentaNYL INJECTION 100 MCG/2 ML AMP IVP ONE; -fentaNYL INJECTION 100 MCG/2 ML AMP ONE
--- NOTE | 2022-08-13 15:41 | Diagnostic Imaging Report ---
INDICATION: Coronary artery screening. TECHNIQUE: CT coronary calcium study was performed with noncontrast images of the heart followed by calculation of the cardiac calcium score. Dose reduction protocol was used. FINDINGS: There are no enlarged mediastinal or hilar nodes. Visualized portions of the lung armas are clear although the entirety of the lungs was not included on this study. There is no pleural fluid collection. There is minimal coronary calcium with a single calcified plaque in the LAD. Calcium score was 3.6 for the LAD and 0 in the remaining territories. IMPRESSION: Coronary calcium score was 3.6, compatible with overall minimal plaque burden. Dictated by: Dictated on workstation # [id number]
== END ==
LOC: RAD 08:57
PROVIDERS: ATTEND Internal Medicine
DX: I25.10 Atherosclerotic heart disease of native coronary artery without angina pectoris (principal)
CPT/HCPCS: 75571